=== PATIENT | female | born 1970 | race Caucasian/White ===

== ENCOUNTER 2022-10-22 14:43 | Emergency (ER) | payer BC, SELFPAY ==
[2022-10-22 14:54] VITALS: BP 148/76; PULSE 75; RESP 16; TEMP 36.5; O2SAT 100
--- NOTE | 2022-10-22 15:07 | ED.URI ---
HPI - URI/Sore Throat General Chief Complaint: Upper Respiratory Infection Stated Complaint: sore throat Time Seen by Provider: 10/22/22 15:08 Source: patient, RN notes reviewed and old records reviewed Mode of arrival: ambulatory Limitations: no limitations History of Present Illness HPI Narrative: 52-year-old female presents to the [facility] with complaints of a sore throat for 2.5 weeks. Has tried some [id number] products. Has not contacted primary care provider States that she did a virtual visit was told just to take [id number] products. Denies any fevers. No chest pain or shortness of breath. Reports productive cough especially in the morning. Reports a lot of postnasal drainage Related Data Home Medications Medication Instructions Recorded Confirmed esomeprazole sodium DAILY 10/22/22 lamotrigine 150 mg tablet 150 mg DAILY 10/22/22 10/22/22 levetiracetam 500 mg tablet 500 mg PO DAILY 10/22/22 10/22/22 sertraline 100 mg tablet 100 mg DAILY 10/22/22 10/22/22 spironolactone 50 mg tablet 50 mg DAILY 10/22/22 10/22/22 topiramate 50 mg tablet 50 mg DAILY 10/22/22 10/22/22 Allergies Allergy/AdvReac Type Severity Reaction Status Date / Time meperidine [From Demerol] AdvReac Unknown Verified 10/22/22 15:07 tramadol AdvReac Unknown Verified 10/22/22 15:07 Review of Systems Review of Systems: All systems reviewed & are unremarkable except as noted in HPI and below Constitutional: Constitutional: Reports no additional constitutional complaints Eyes: Eyes: Reports no additional eye complaints ENT: Reports as per HPI, Reports nasal congestion and Reports sore throat Cardiovascular: Cardiovascular: Reports no additional cardiovascular complaints, Denies chest pain and Denies dyspnea Respiratory: Respiratory: Reports as per HPI, Denies chest congestion, Reports cough and Denies dyspnea Gastrointestinal: Gastrointestinal: Reports no additional gastrointestinal complaints, Denies abdominal pain, Denies nausea and Denies vomiting Musculoskeletal: Musculoskeletal: Reports no additional musculoskeletal complaints Integumentary/Breasts: Skin/Breast: Reports system reviewed and no additional complaints, except as docu Neurologic: Reports system reviewed and no additional complaints, except as documented Psychiatric: Psychiatric: Reports no additional psychiatric complaints Allergic/Immunologic: Allergic/Immunologic: Reports no additional allergic/immunologic complaints PMFSH Comments At the time of my signature, I reviewed and agree with the nursing past medical, surgical, social, and family history. There is no relevant family history pertinent to the patient complaint. Exam Const: General: cooperative, healthy appearing, comfortable, no acute distress, well developed, alert and well nourished Nutritional Appearance: well nourished and obese Orientation/consciousness: patient oriented x3 Limitations: no limitations HENMT: Head: normal to inspection Ears: hearing grossly normal bilaterally and external ears normal Face/Nose/Sinus: Normal external nose present, Normal nares present, Normal nasal mucous membranes and turbinates present and normal facial exam Face and sinus: normal facial exam Mouth: Yes Normal oral and palatal mucosa present, Yes lip normal and Yes moist mucous membranes Throat: posterior oropharynx normal, uvula midline and postnasal drainage Eyes: General: appearance normal, both eyes and all related structures Alignment and Position: alignment normal Periorbital: periorbital findings normal Conjunctivae: conjunctivae normal Pupils: Equal, round and reactive pupils present EOM: EOMs intact bilaterally Neck: Neck: normal visual inspection, full ROM, no lymphadenopathy and no meningeal signs Chest: Chest palpation & inspection: normal inspection of the chest Resp: Effort & Inspection: normal respiratory effort and able to speak in complete sentences Auscultation: clear to auscultati
== END 2022-10-22 15:28 | disposition home or self-care (01) ==
PROVIDERS: Emergency Provider Nurse Practitioner
DX: R09.82 Postnasal drip (principal); J02.9 Acute pharyngitis, unspecified
CPT/HCPCS: 99203; G0463

== ENCOUNTER 2024-11-08 12:31 | Emergency (ER) | payer BC, SELFPAY ==
[2024-11-08 12:44] VITALS: BP 119/70; PULSE 78; RESP 18; TEMP 37.8; O2SAT 97
--- NOTE | 2024-11-08 12:44 | ED_ITS ---
HPI - URI/Sore Throat General Chief Complaint: Upper Respiratory Infection Stated Complaint: Congestion/Sinus Time Seen by Provider: 11/08/24 12:58 Source: patient and RN notes reviewed Mode of arrival: ambulatory Limitations: no limitations History of Present Illness HPI Narrative: 54-year-old female presents with concern for body aches, chills, nasal congestion, rhinorrhea, sore throat headache yesterday. Reports she has taken Tylenol, ibuprofen, Sudafed. MD elicited complaint: fever and cough Related Data Home Medications ?Medication ?Instructions ?Recorded ?Confirmed ?Last Taken ?Type esomeprazole sodium DAILY 10/22/22 Unknown History lamotrigine 150 mg tablet 150 mg DAILY 10/22/22 10/22/22 Unknown History levetiracetam 500 mg tablet 500 mg PO DAILY 10/22/22 10/22/22 Unknown History sertraline 100 mg tablet 100 mg DAILY 10/22/22 10/22/22 Unknown History topiramate 50 mg tablet 50 mg DAILY 10/22/22 10/22/22 Unknown History montelukast 10 mg tablet mg 11/08/24 Unknown History spironolactone 100 mg tablet mg 11/08/24 Unknown History Allergies Allergy/AdvReac Type Severity Reaction Status Date / Time meperidine (From Demerol) AdvReac Unknown Verified 11/08/24 12:33 tramadol AdvReac Unknown Verified 11/08/24 12:33 Review of Systems Review of Systems: CONSTITUTIONAL: Reports malaise, chills, fever. EYES: Denies visual changes, redness, or discharge. ENT: Reports rhinorrhea, congestion, and sore throat. CARDIOVASCULAR: Denies chest pain, palpitations, or edema. RESPIRATORY: Reports cough. Denies dyspnea. GASTROINTESTINAL: Denies abdominal pain, nausea, vomiting, diarrhea SKIN: Denies rash or itching. MUSCULOSKELETAL: Reports myalgia. NEUROLOGIC: Reports headache. All systems reviewed & are unremarkable except as noted in HPI and below PMFSH Comments At time of signature, agree with nursing past medical, surgical, social and family history. There is no relevant family history pertinent to the presenting complaint Exam Narrative: GENERAL: Nontoxic-appearing, well-nourished, and in no acute distress. HEAD: Normocephalic EYES: PERRLA, conjunctivae clear ENT: Nares clear. Mucous membranes moist. TM pearly martinez with dull light reflex bilaterally; no tragal tenderness. Oropharynx not erythematous without lesions. Tonsils not enlarged and without exudate, no drooling, no hoarseness, no trismus, uvula midline. NECK: Supple. No lymphadenopathy CHEST: Clear to auscultation, breath sounds equal. No wheezing, rhonchi, rales, or stridor. No respiratory distress, speaks in full sentences. HEART: Regular rate and rhythm. No murmur heard. SKIN: Warm, dry, no rash. NEURO: Alert and oriented x3. PSYCH: Normal mood and affect Course Course Emergency Course: Patient is aware of diagnosis, understands and agrees to treatment plan. Anticipatory guidance given. Patient agrees to follow-up as directed and is aware of reasons to seek care at the emergency department. Portions of this record may have been created with voice recognition software Level of Care: Express Care Visit Vital Signs Vital signs: Reviewed. MDM - URI/Sore Throat MDM Narrative Medical decision making narrative: Differential diagnosis considered: Martinez virus, strep pharyngitis, allergic rhinitis, upper respiratory tract infection, sinusitis, rhinosinusitis, nasopharyngitis. viral pharyngitis, otitis media, otitis externa, pneumonia, bronchitis, viral cough syndrome, viral syndrome, and influenza. Exam findings show no acute concerns or changes; patient is non-toxic appearing and is in no d istress. Patient is appropriate for outpatient treatment and follow-up. Lab Data Attestation: I reviewed the patient's lab results. Critical Care Time Critical Care Time Critical Care Time: No Discharge Plan Discharge Clinical Impression: Influenza A Patient Disposition: Home, Self-Care Condition: Stable Instructions: Influenza (ED) Additional Instructions: -Take strict precautions to prevent the spread of your virus. Be diligent about covering your cough (even when you are alone) and washing your hands frequently. -You may contagious until you have been symptom and/or fever free for 24 hours without fever reducing medicine -Alternate Ibuprofen and Tylenol for pain and fever relief (per package directions) -Drink plenty of fluid - drink fluid with electrolytes such as Gatorade or other oral re-hydration solution. Avoid caffeine, which can make dehydration worse. -Get plenty of rest to help your body heal. -Use a cool mist humidifier for chest and nasal congestion. -Eat RAW honey or use cough drops to ease throat discomfort -Do not smoke or expose children to secondhand smoke -Wash your hands frequently. -Please follow-up with your primary care doctor in the next 1-2 days if your symptoms do not improve. -If you have any worsening of symptoms or any other concerns please go to the ED immediately. -Please take medications as prescribed and continue taking your home medications as usual. Patient Language: Jamaican Prescriptions: New oseltamivir 75 mg capsule 75 mg PO BID 5 Days Qty: 10 0RF No Action lamotrigine 150 mg tablet 150 mg DAILY levetiracetam 500 mg tablet 500 mg PO DAILY sertraline 100 mg tablet 100 mg DAILY topiramate 50 mg tablet 50 mg DAILY esomeprazole sodium DAILY spironolactone 100 mg tablet montelukast 10 mg tablet Follow-up/Referrals: Chadd,Geovanny Jones MD [Primary Care Provider] - Stand Alone Forms: Work/School Release IP Time of Disposition: 13:07
[2024-11-08 13:03] LABS: EDCOVIDSCREEN Negative (Negative); EDINFLUASCREEN Positive (Negative); EDINFLUBSCREEN Negative (Negative)
== END 2024-11-08 13:10 | disposition home or self-care (01) ==
PROVIDERS: Emergency Provider Nurse Practitioner; PCP Family Medicine
DX: J10.1 Influenza due to other identified influenza virus with other respiratory manifestations (principal); Z20.822 Contact with and (suspected) exposure to COVID-19; G40.909 Epilepsy, unspecified, not intractable, without status epilepticus
CPT/HCPCS: 87426; 87804; 99213; G0463

== ENCOUNTER 2025-06-05 10:43 | Emergency (ER) | payer BC, SELFPAY ==
[2025-06-05 10:54] VITALS: BP 133/69; PULSE 84; RESP 16; TEMP 36.9; O2SAT 98
--- NOTE | 2025-06-05 11:03 | ED.EAR ---
HPI - Ear Problem General Chief complaint: Ear Stated complaint: Right Ear Irritation patient presents to the [facility] with complaints of right ear aching with occasional sharp shooting pain through the right ear with muffled hearing. Patient reports over last 2 weeks she has had nasal congestion, sinus pain, cough, nasal drainage right ear pain and occasional dizziness. Patient reports various people have had symptoms. History of problems with ears. no medication other than daily Zyrtec occasional use of Flonase. Denies fever, chills, body aches, drainage from ear, sore throat, nausea, vomiting, diarrhea. Related Data Home Medications ?Medication ?Instructions ?Recorded ?Confirmed ?Last Taken ?Type esomeprazole sodium DAILY 10/22/22 Unknown History lamotrigine 150 mg tablet 150 mg DAILY 10/22/22 10/22/22 Unknown History levetiracetam 500 mg tablet 500 mg PO DAILY 10/22/22 10/22/22 Unknown History sertraline 100 mg tablet 100 mg DAILY 10/22/22 10/22/22 Unknown History topiramate 50 mg tablet 50 mg DAILY 10/22/22 10/22/22 Unknown History montelukast 10 mg tablet mg 11/08/24 Unknown History spironolactone 100 mg tablet mg 11/08/24 Unknown History ursodiol 300 mg capsule mg 06/05/25 Unknown History Allergies Allergy/AdvReac Type Severity Reaction Status Date / Time meperidine (From Demerol) AdvReac Unknown Verified 06/05/25 10:50 tramadol AdvReac Unknown Verified 06/05/25 10:50 Review of Systems Constitutional: Constitutional: Reports as per HPI, Denies chills, Reports fatigue, Denies fever(s) and Denies weakness Eyes: Eyes: Reports no additional eye complaints ENT: Reports as per HPI, Reports vertigo, Reports dizziness, Reports nasal congestion and Denies sore throat Comments: Right ear pain, decreased hearing right ear Cardiovascular: Cardiovascular: Reports no additional cardiovascular complaints Respiratory: Respiratory: Reports as per HPI, Reports chest congestion, Reports cough, Denies dyspnea and Denies wheezing Gastrointestinal: Gastrointestinal: Reports no additional gastrointestinal complaints Genitourinary: Genitourinary: Reports no additional female genitourinary complaints Musculoskeletal: Musculoskeletal: Reports as per HPI and Denies myalgias Integumentary/Breasts: Skin/Breast: Reports as per HPI, Denies erythema and Denies rash Neurologic: Reports as per HPI, Reports vertigo, Reports dizziness, Reports headache(s) and Denies weakness Psychiatric: Psychiatric: Reports no additional psychiatric complaints Endocrine: Endocrine: Reports no additional endocrine complaints Hematologic/Lymphatic: Hematologic/Lymphatic: Reports no additional hematologic/lymphatic complaints Allergic/Immunologic: Allergic/Immunologic: Reports as per HPI Comments: seasonal allergies Exam Const: General: healthy appearing and no acute distress Nutritional Appearance: well nourished Orientation/consciousness: patient oriented x3 Limitations: no limitations HENMT: Head: normal to inspection Ears: external ears abnormal ( pain with movement right ear) and TM's abnormal bilaterally ( left normal, right obstructed by cerumen) Face/Nose/Sinus: Normal external nose present and Normal nares present Face and sinus: normal facial exam and sinuses nontender Mouth: Yes Normal oral and palatal mucosa present, Yes lip normal and Yes moist mucous membranes Throat: posterior oropharynx normal Other: moderate swelling to right ear canal and right tragus. Moderate erythema noted throughout right ear canal. Left canal normal Neck: Neck: normal visual inspection and no lymphadenopathy Resp: Effort & Inspection: normal respiratory effort Auscultation: clear to auscultation bilaterally Cardio: Rate: regular rate Rhythm: regular rhythm Skin: General skin exam: normal color Rashes: no rashes Wounds: no wounds Neuro: General: patient oriented x3 Speech: normal speech Gait exam (Neuro): Normal gait present Psych: Mental Status: mental status grossly normal Affect: normal affect Attitude: cooperative Course Course Level of Care: Express Care Visit Vital Signs Vital signs: Vital Signs Temperature 98.5 F 06/05/25 10:54 Pulse Rate 84 06/05/25 10:54 Respiratory Rate 16 06/05/25 10:54 Blood Pressure 133/69 06/05/25 10:54 Pulse Oximetry 98 06/05/25 10:54 Oxygen Delivery Room Air 06/05/25 10:54 Temperature 98.5 F 06/05/25 10:54 Pulse Rate 84 06/05/25 10:54 Respiratory Rate 16 06/05/25 10:54 Blood Pressure 133/69 06/05/25 10:54 Pulse Oximetry 98 06/05/25 10:54 Oxygen Delivery Room Air 06/05/25 10:54 Medical Decision Making MDM Narrative Medical decision making narrative: otitis externa noted exam. Wax present id the ear canal and able to see TM. Will place patient on oral antibiotics given significant cold-like symptoms with significant pain in the ear canal The patient was evaluated by myself in the [facility] care. History is obtained from patient who is an independent historian and physical exam was performed. Available medical records were reviewed at this time. Exam findings show no acute concerns or changes; patient is non-toxic appearing and is in no distress. Patient is appropriate for outpatient treatment and follow-up. I have evaluated and discussed social determinants of health with the patient that could potentially impact subsequent diagnosis and treatment plans. Differential diagnosis and treatment plan were discussed with the patient. Patient agrees with discussion and after shared medical decision making agrees with plan of care. All questions were answered to the patient's satisfaction. Differential Diagnosis Differential Diagnosis: with this media, otitis externa, sinusitis, cerumen impaction Medical Records Medical records reviewed: Yes I reviewed the external patient's medical records. Vital Signs Vital Signs: Vital Signs Temperature 98.5 F 06/05/25 10:54 Pulse Rate 84 06/05/25 10:54 Respiratory Rate 16 06/05/25 10:54 Blood Pressure 133/69 06/05/25 10:54 Pulse Oximetry 98 06/05/25 10:54 Oxygen Delivery Room Air 06/05/25 10:54 Temperature 98.5 F 06/05/25 10:54 Pulse Rate 84 06/05/25 10:54 Respiratory Rate 16 06/05/25 10:54 Blood Pressure 133/69 06/05/25 10:54 Pulse Oximetry 98 06/05/25 10:54 Oxygen Delivery Room Air 06/05/25 10:54 Discharge Plan Discharge Clinical Impression: Diffuse otitis externa, right ear, Impacted cerumen of right ear Patient Disposition: Home Condition: Stable Instructions: Antibiotic Form, Carbamide Peroxide (Into the ear), Swimmer's Ear (ED) Additional Instructions: -Ear drops as directed for 7-10 days until the pain and swelling are gone. -When administer drug into the affected ear; make sure to ly down with the affected ear facing upward, message the ear canal to help the drops reach the medial end of the canal, then remain in that position for at least 5 mintues. -Avoid using cotton tipped applicator for ears cleaning -Avoid exposing swimming or exposing the affected ear to water during the treatment period Take or alternate tylenol or ibuprofen every 4 - 6 hours if needed for pain. Follow up with primary care provider if condition is not improving in 7 days or sooner if there is new concern. Patient Language: Pashto Prescriptions: New amoxicillin 875 mg tablet 875 mg PO Q12H Qty: 20 0RF ciprofloxacin-dexamethasone 0.3-0.1 % drops,suspension 4 drp EACH EAR Q12H 7 Days Qty: 7.5 0RF No Action lamotrigine 150 mg tablet 150 mg DAILY levetiracetam 500 mg tablet 500 mg PO DAILY sertraline 100 mg tablet 100 mg DAILY topiramate 50 mg tablet 50 mg DAILY esomeprazole sodium DAILY spironolactone 100 mg tablet montelukast 10 mg tablet oseltamivir 75 mg capsule 75 mg PO BID 5 Days Qty: 10 0RF ursodiol 300 mg capsule Follow-up/Referrals: Chadd,Geovanny Jones MD [Primary Care Provider, Unknown] Time of Disposition: 11:17
== END 2025-06-05 11:20 | disposition home or self-care (01) ==
PROVIDERS: Emergency Provider Nurse Practitioner Family; PCP Family Medicine
DX: H60.91 Unspecified otitis externa, right ear (principal); H61.21 Impacted cerumen, right ear
CPT/HCPCS: 99213; G0463